=== PATIENT | male | born 1975 | race Caucasian/White ===

== ENCOUNTER 2022-07-01 16:48 | Emergency (ER) | payer OTHER, SELFPAY ==
[2022-07-01 17:10] VITALS: BP 169/90; PULSE 84; RESP 16; TEMP 36.5; O2SAT 97
--- NOTE | 2022-07-01 17:18 | ED.FEVER ---
HPI - Fever General Chief Complaint: Skin/Abscess/Foreign Body Stated Complaint: fever/bumps on body Time Seen by Provider: 07/01/22 17:08 Source: patient and RN notes reviewed Mode of arrival: ambulatory Limitations: no limitations History of Present Illness MD elicited complaint: fever Onset (ago): day(s) (3) Measured temperature: 102 C Exacerbating factors: nothing Relieving factors: nothing Associated symptoms: rash Treatments prior to arrival fever: none Related Data Home Medications Medication Instructions Recorded Confirmed No Home Medications 07/01/22 07/01/22 Allergies Allergy/AdvReac Type Severity Reaction Status Date / Time No Known Allergies Allergy Verified 07/01/22 17:23 Review of Systems Review of Systems: no other associated symptoms that would be consistent with COVID All systems reviewed & are unremarkable except as noted in HPI and below PMFSH Past Medical History Medical History (Updated 07/01/22 @ 18:35 by Meek Huitron MD) Hypertension Surgical History Surgical History (Updated 07/01/22 @ 17:22 by Meek Huitron MD) No pertinent past surgical history Social History Social History (Updated 07/01/22 @ 17:22 by Meek Huitron MD) Smoking packs per day: 1.5 Smoking cigarettes per day: 30.0 Smoking status: Current every day smoker Tobacco type: cigarettes Alcohol intake: current Alcohol use details: occasional Exam Const: General: healthy appearing, no acute distress and alert Nutritional Appearance: well nourished and thin Orientation/consciousness: patient oriented x3 Limitations: no limitations HENMT: Head: normal to inspection Ears: external ears normal Face and sinus: normal facial exam Eyes: Conjunctivae: conjunctivae normal Pupils: Equal, round and reactive pupils present EOM: EOMs intact bilaterally Neck: Neck: normal visual inspection Resp: Effort & Inspection: normal respiratory effort Auscultation: clear to auscultation bilaterally Cardio: Rate: regular rate Rhythm: regular rhythm GI: GI Palp: Yes Soft to palpation and No Tenderness to palpation present (GI) Auscultation: normal bowel sounds Back/Spine/Pelvis: Cervical Spine: cervical ROM normal Thoracic/Lumbar Spine: thoraco-lumbar ROM normal Skin: General skin exam: normal color Rashes: rashes noted multiple locations arrangement linear ( Right anterior forearm bilateral anterior distal tibia) and other ( excoriated); nontender Neuro: General: patient oriented x3, moves all extremities, no focal motor deficits and CN's II-XI intact bilaterally Speech: normal speech Gait exam (Neuro): Normal gait present Extrem: General: normal to inspection and no clubbing, cyanosis or edema Psych: Appearance: grossly normal and well kempt Mental Status: mental status grossly normal Affect: normal affect Attitude: cooperative Course Vital Signs Vital signs: Vital Signs Temperature 36.5 C 07/01/22 17:10 Pulse Rate 84 07/01/22 17:10 Respiratory Rate 16 07/01/22 17:10 Blood Pressure 169/90 H 07/01/22 17:10 Pulse Oximetry 97 07/01/22 17:10 Oxygen Delivery Room Air 07/01/22 17:10 Temperature 36.5 C 07/01/22 17:10 Pulse Rate 84 07/01/22 17:10 Respiratory Rate 16 07/01/22 17:10 Blood Pressure 169/90 H 07/01/22 17:10 Pulse Oximetry 97 07/01/22 17:10 Oxygen Delivery Room Air 07/01/22 17:10 MDM - Fever Lab Data Attestation: I reviewed the patient's lab results. Labs: Lab Results 07/01/22 Range/Units 17:47 SARS-CoV-2 RNA (RT-PCR) Negative (Negative) Discharge Plan Discharge Clinical Impression: Contact dermatitis Qualifiers: Contact dermatitis type: allergic Contact dermatitis trigger: non-food plants Qualified Code(s): L23.7 - Allergic contact dermatitis due to plants, except food Fever Qualifiers: Fever type: unspecified Qualified Code(s): R50.9 - Fever, unspecified Patient Disposition: Home, Self-Care C
[2022-07-01 18:22] LABS: SARS-CoV-2 RNA PCR Negative (Negative)
[2022-07-01 18:39] VITALS: BP 166/88; PULSE 78; RESP 14; TEMP 36.4; O2SAT 97
== END 2022-07-01 18:40 | disposition home or self-care (01) ==
PROVIDERS: Emergency Provider Emergency Medicine
DX: L23.7 Allergic contact dermatitis due to plants, except food (principal); R50.9 Fever, unspecified; Z20.822 Contact with and (suspected) exposure to COVID-19
CPT/HCPCS: 99283; C9803; U0003; U0005

== ENCOUNTER 2024-03-09 05:39 | Emergency (ER) | payer OTHER, SELFPAY ==
--- NOTE | ~2024-03-09 | CT_ITS ---
Non-contrast Head CT History: Headache Technique: Axial non-contrast imaging of the brain was performed. Dose reduction technique was used on this scan by utilizing automated exposure control and iterative reconstruction technique. The dose -length product (DLP) was 681.00 mGy-cm. Findings: There is no evidence of intracranial hemorrhage, mass lesion, or acute infarct. Brain par enchyma appears normal. The ventricles and subarachnoid spaces are normal in size. The calvarium ap pears normal. Right maxillary sinus disease present. The remaining visualized paranasal sinuses and m astoid air cells are clear. Impression: No intracranial abnormality seen. Right maxillary sinus disease. Reviewed, dictated and finalized at location M. Impression: No intracranial abnormality seen. Right maxillary sinus disease.
[2024-03-09 05:54] VITALS: BP 185/108; PULSE 77; RESP 18; TEMP 36.6; O2SAT 100
[2024-03-09 06:00] VITALS: BP 159/101; PULSE 85; RESP 20; O2SAT 97
--- NOTE | 2024-03-09 06:00 | PC.NURSE ---
Pt given water to drink and fruit and applesauce cups, he states he hasn't had anything for a couple days.
--- NOTE | 2024-03-09 06:01 | ED.GENADULT ---
HPI - General Adult General Chief complaint: Dizziness Stated complaint: WEAKNESS Time Seen by Provider: 03/09/24 07:11 History of Present Illness HPI narrative: Pt found laying in someone's back yard. Pt says he is walking to [place] because he has a place to stay there. Pt says he used to live at this home when he was a child and thought it was a homeless custodial with a food pantry. Pt says he doesn't like people. Pt says he has a BROWN but otherwise has no complaints. Pt takes no medication and denies any psych history. Pt denies Si or HI, Related Data Allergies Allergy/AdvReac Type Severity Reaction Status Date / Time No Known Allergies Allergy Verified 07/01/22 17:23 Review of Systems Review of Systems: All systems reviewed & are unremarkable except as noted in HPI and below PMFSH Past Medical History Medical History (Updated 03/10/24 @ 00:01 by Magdalene Jaimes) Hypertension Surgical History Surgical History (Updated 07/01/22 @ 17:22 by Meek HuitronMD) No pertinent past surgical history Social History Social History (Updated 07/01/22 @ 17:22 by Meek MeehanMD) Smoking packs per day: 1.5 Smoking cigarettes per day: 30.0 Smoking status: Current every day smoker Tobacco type: cigarettes Alcohol intake: current Alcohol use details: occasional Exam Const: General: no acute distress Nutritional Appearance: thin Orientation/consciousness: patient oriented x3 Limitations: behavioral limitations HENMT: Head: normal to inspection Eyes: Conjunctivae: conjunctivae normal Pupils: Equal, round and reactive pupils present EOM: EOMs intact bilaterally Neck: Neck: normal visual inspection, no lymphadenopathy and no meningeal signs Resp: Effort & Inspection: normal respiratory effort Auscultation: clear to auscultation bilaterally Cardio: Rate: regular rate Rhythm: regular rhythm GI: GI Palp: Yes Soft to palpation Auscultation: normal bowel sounds Skin: General skin exam: normal color Wounds: no wounds Neuro: General: moves all extremities, no focal motor deficits and CN's II-XI intact bilaterally Speech: normal speech Extrem: General: normal to inspection and no clubbing, cyanosis or edema Psych: Other: Pt aware of where he is, pt is somewhat paranoid Course Vital Signs Vital signs: Vital Signs Temperature 97.9 F 03/09/24 05:54 Pulse Rate 77 03/09/24 05:54 Respiratory Rate 18 03/09/24 05:54 Blood Pressure 185/108 H 03/09/24 05:54 Pulse Oximetry 100 03/09/24 05:54 Oxygen Delivery Room Air 03/09/24 05:54 Temperature 97.9 F 03/09/24 05:54 Pulse Rate 86 03/09/24 06:18 Respiratory Rate 20 03/09/24 06:18 Blood Pressure 182/113 H 03/09/24 06:18 Pulse Oximetry 97 03/09/24 06:18 Oxygen Delivery Room Air 03/09/24 06:18 Medical Decision Making MDM Narrative Medical decision making narrative: Pt found sleeping in someone's back yard. Pt has mild BROWN otherwise no complaints. Pt denies any medical history and take no meds. Pt seems like likely schizophrenic but is not HI or SI. Pt is disheveled. Will check a head CT and some routine labs and likely discharge. Will turn over to Dr Jackman at 0700 awaiting labs. Pt BP is elevated but liely always like this and I doubt patient will fill a Rx for BP meds so I'm inclined to not treat it here. Vital Signs Vital Signs: Vital Signs Temperature 97.9 F 03/09/24 05:54 Pulse Rate 77 03/09/24 05:54 Respiratory Rate 18 03/09/24 05:54 Blood Pressure 185/108 H 03/09/24 05:54 Pulse Oximetry 100 03/09/24 05:54 Oxygen Delivery Room Air 03/09/24 05:54 Temperature 97.9 F 03/09/24 05:54 Pulse Rate 86 03/09/24 06:18 Respiratory Rate 20 03/09/24 06:18 Blood Pressure 182/113 H 03/09/24 06:18 Pulse Oximetry 97 03/09/24 06:18 Oxygen Delivery Room Air 03/09/24 06:18 Lab Data 03/09/24 06:23 03/09/24 06:23 La
[2024-03-09 06:18] VITALS: BP 182/113; PULSE 86; RESP 20; O2SAT 97
--- NOTE | 2024-03-09 06:19 | PC.NURSE ---
ERP informed of pt elevated BP. Pt states he always has High BP. When asked if pt would take medication if given for his BP, he responded yes he would take something if needed.
[2024-03-09 06:30] LABS: Basophils Percent Auto 0.7 % (0.0-1.0); Eosinophils Absolute Auto 0.18 K/mm3 (0.02-0.50); Eosinophils Percent Auto 1.3 % (1.0-6.0); Hemoglobin 16.8 g/dL (14.0-18.0); Immature Granulocyte Absolute 0.05 K/mm3 (0.00-0.00); Immature Granulocyte Percent A 0.4 % (0.0-0.0); Lymphocytes Absolute Auto 2.88 K/mm3 (1.10-4.50); Mean Corpuscular HGB Conc 33.6 g/dL (32-36); Mean Corpuscular Hemoglobin 28.8 pg (27.0-31.0); Mean Corpuscular Volume 85.8 fL (78.0-102.0); Mean Platelet Volume 10.6 fl (8.7-11.0); Monocytes Absolute Auto 0.64 K/mm3 (0.10-0.90); Monocytes Percent Auto 4.7 % (2.0-11.0); Neutrophils Absolute Auto 9.87 K/mm3 (1.70-7.20); Neutrophils Percent Auto 71.9 % (50.0-70.0); Platelet Count Result 252 K/mm3 (150-420); Red Blood Count 5.83 M/mm3 (4.70-6.10); Red Cell Distribution Width 13.2 % (11.6-14.4); White Blood Count 13.7 K/mm3 (4.8-10.8)
[2024-03-09 06:46] LABS: Alanine Aminotransferase 19 U/L (16-63); Albumin Level 3.8 g/dL (3.4-5.0); Alkaline Phosphatase 79 U/L (46-116); Aspartate Amino Transferase 34 U/L (15-37); Bilirubin,Total 1.2 mg/dL (0.00-1.00); Blood Urea Nitrogen 16 mg/dL (7-18); Calcium 8.9 mg/dL (8.5-10.1); Carbon Dioxide 35 mmol/L (21-32); Estimated CRCL calculation 96 ml/min; Estimated Glomerular Filt Rate > 60; Glucose 95 mg/dL (70-99); Total Protein 7.3 g/dL (6.4-8.2)
[2024-03-09 06:53] LABS: Acetaminophen < 2 ug/mL (10-30); Anion Gap 0 mmol/L (4-12); Chloride 98 mmol/L (98-108); Ethanol < 3 mg/dL (0-6); Osmolality Calculated 277 mOsm/kg (285-295); Potassium 4.3 mmol/L (3.5-5.1); Sodium 133 mmol/L (136-145)
--- NOTE | 2024-03-09 06:55 | PC.NURSE ---
assumed care. report received from Isaura ART
--- NOTE | 2024-03-09 06:57 | PC.NURSE ---
Report to RUBENS Cook
--- NOTE | 2024-03-09 07:07 | PC.NURSE ---
patient is resting on stretcher with eyes closed. resp even and unlabored. call light in reach.
--- NOTE | 2024-03-09 07:12 | PC.NURSE ---
informed patient that he is going to be discharged. that it was time to get dressed. patient nodded his head.
[2024-03-09] MEDS: amLODIPine BESYLATE 5 MG TABLET PO (07:22)
--- NOTE | 2024-03-09 07:23 | PC.NURSE ---
ER Provider aware of elevated blood pressure. medicated per orders.
== END 2024-03-09 07:24 | disposition home or self-care (01) ==
PROVIDERS: Emergency Medicine; Emergency Provider Emergency Medicine
DX: I10 Essential (primary) hypertension (principal); F43.0 Acute stress reaction; F17.210 Nicotine dependence, cigarettes, uncomplicated
CPT/HCPCS: 36415; 70450; 80053; 80307; 85025; 99284; A9270

== ENCOUNTER 2024-07-07 19:38 | Emergency (ER) | payer OTHER, SELFPAY ==
[2024-07-07 19:38] VITALS: BP 210/107; PULSE 85; RESP 18; TEMP 37.1; O2SAT 99
--- NOTE | 2024-07-07 19:40 | PC.NURSE ---
patient states i know i have high blood pressure. stroke level blood pressures. i havent been taking my blood pressure meds . Educated patient on high blood pressure and the need to take medications.
--- NOTE | 2024-07-07 19:40 | ED.DENTAL ---
HPI - Dental/Oral General Chief complaint: Dental/Oral Stated complaint: DENTAL PAIN Source: patient Mode of arrival: ambulatory Limitations: no limitations History of Present Illness HPI Narrative: 48-year-old male, smoker with a history of dental caries, hypertension ( not on amlodipine at this time) presents to the ED with -- right upper and lower dental pain with swelling of the right jaw. No fever or chills. the patient received Keflex last month for dental caries/dental pain. Patient has extensive dental caries with multiple missing, fractured and missing crowns. -- High blood pressure. Blood pressure of 201/100. patient has Norvasc but is noncompliant and has not taken it for the past few days. MD Complaint: tooth pain Location: Tooth # ( 27, 28, 29, 30, 31, 3,4,5) Onset (ago): day(s) Duration: constant Severity: severe Relieving factors: nothing Exacerbating factors: cold and heat Context: history of dental caries Related Data Allergies Allergy/AdvReac Type Severity Reaction Status Date / Time No Known Allergies Allergy Verified 07/01/22 17:23 Review of Systems Review of Systems: All systems reviewed & are unremarkable except as noted in HPI and below Constitutional: Constitutional: Reports as per HPI and Reports no additional constitutional complaints Eyes: Eyes: Reports as per HPI and Reports no additional eye complaints ENT: Reports system reviewed and no additional complaints, except as documented and Reports as per HPI Comments: right-sided dental pain both upper and lower jaw with swelling of the right lower jaw Cardiovascular: Cardiovascular: Reports as per HPI and Reports no additional cardiovascular complaints Respiratory: Respiratory: Reports as per HPI and Reports no additional respiratory complaints Gastrointestinal: Gastrointestinal: Reports as per HPI and Reports no additional gastrointestinal complaints Genitourinary: Genitourinary: Reports no additional male genitourinary complaints and Reports as per HPI Musculoskeletal: Musculoskeletal: Reports no additional musculoskeletal complaints and Reports as per HPI Comments: right jaw pain with swelling Integumentary/Breasts: Skin/Breast: Reports system reviewed and no additional complaints, except as docu and Reports as per HPI Neurologic: Reports system reviewed and no additional complaints, except as documented and Reports as per HPI Psychiatric: Psychiatric: Reports no additional psychiatric complaints and Reports as per HPI Endocrine: Endocrine: Reports no additional endocrine complaints and Reports as per HPI Hematologic/Lymphatic: Hematologic/Lymphatic: Reports no additional hematologic/lymphatic complaints and Reports as per HPI Allergic/Immunologic: Allergic/Immunologic: Reports no additional allergic/immunologic complaints and Reports as per HPI [facility] Past Medical History Medical History (Updated 07/07/24 @ 20:52 by Martin Ulrich MD) Dental caries Hypertension Surgical History Surgical History (Updated 07/01/22 @ 17:22 by Meek HuitronMD) No pertinent past surgical history Social History Social History (Updated 07/01/22 @ 17:22 by Meek HuitronMD) Smoking packs per day: 1.5 Smoking cigarettes per day: 30.0 Smoking status: Current every day smoker Tobacco type: cigarettes Alcohol intake: current Alcohol use details: occasional Exam Narrative: blood pressure of 200/101. Afebrile. Const: General: ill appearing Nutritional Appearance: thin Orientation/consciousness: patient oriented x3 Limitations: no limitations HENMT: Head: normal to inspection Ears: external ears normal Face/Nose/Sinus: Normal external nose present Face and sinus: normal facial exam Mouth: Yes Normal oral and palatal mucosa present Teeth and gingiva: dentition normal ( Multiple carious teeth with missing crowns and some of fracture.Gingiviti) Throat: posterior oropharynx normal Eyes:
--- NOTE | 2024-07-07 19:56 | PC.NURSE ---
Dr Ulrich at the bedside
[2024-07-07 20:04] VITALS: BP 200/101
--- NOTE | 2024-07-07 20:04 | PC.NURSE ---
Dr Ulrich aware of blood pressure
[2024-07-07] MEDS: CLINDAMYCIN HCL 150 MG CAP 300 MG PO (20:14)
[2024-07-07] MEDS: HYDROcodone/acetaminophen (*CRX) 5-325 MG TABLET 1 TAB PO (20:14)
[2024-07-07] MEDS: cloNIDine HCL 0.2 MG TABLET PO (20:14)
[2024-07-07] MEDS: amLODIPine BESYLATE 5 MG TABLET PO (20:15)
--- NOTE | 2024-07-07 20:16 | PC.NURSE ---
Dr Ulrich trying to talk to patient and to mother. Patient and mother argue over multiple subjects. Increased aggitation in the room between mother and patient
--- NOTE | 2024-07-07 20:22 | PC.NURSE ---
patients mother is now crying, she went out to the waiting room.
[2024-07-07 20:44] VITALS: BP 170/98
[2024-07-07 20:46] VITALS: BP 170/98
--- NOTE | 2024-07-07 20:46 | PC.NURSE ---
Dr Ulrich notified of most recent blood pressure
== END 2024-07-07 20:57 | disposition home or self-care (01) ==
PROVIDERS: Emergency Provider Internal Medicine Critical Care Medicine
DX: K05.10 Chronic gingivitis, plaque induced (principal); K02.9 Dental caries, unspecified; I10 Essential (primary) hypertension; F17.210 Nicotine dependence, cigarettes, uncomplicated
CPT/HCPCS: 99283; A9270